=== PATIENT | female | born 1965 | race Caucasian/White ===

== ENCOUNTER 2023-06-10 08:16 | Outpatient (CLI) | payer MEDICARE, SELFPAY ==
--- NOTE | 2023-06-10 08:15 | CRLHL7_ITS ---
For Patients: As a result of the Century Cures Act, medical imaging exams and procedure reports are released immediately into your electronic medical record. You may view this report before your referring provider. If you have questions, please contact your health care provider. BILATERAL SCREENING MAMMOGRAM WITH COMPUTER-AIDED DETECTION AND TOMOSYNTHESIS TECHNIQUE: CC and MLO views were obtained. These mammographic images have been obtained using full-field digital technique. These mammographic images were interpreted with the benefit of computer-aided detection. Breast Tomosynthesis was used in this interpretation. COMPARISON FILM: 03/13/22, 01/22/21, diagnostic , 11/02/19. FINDINGS: There are scattered areas of fibroglandular density IMPRESSION: There is no radiographic evidence for malignancy. ASSESSMENT: BI-RADS Category 1: Negative RECOMMENDATION: Routine screening mammogram in 1 year. A lay language report of this examination will be provided to the patient. Michael Lombardi M.D. Diagnostic Radiologist [email or web address] DM/Dictated by: Michael Lombardi MD @ 06/10/2023 10:49:00 AM (Electronically Signed)
--- OUTSIDE RECORDS SUMMARY | 2023-06-10 08:21 | XMS_ITS | Continuity of Care Document ---
Author Name Unknown Organization [facility] Address [address] [place] [address] Phone Care Team Providers Care Cafeteria Team Leader Name Role Phone Caedn Shin MD Unavailable Unavailab le Medications Medication Instructions Dosage Effective Dates (start - stop) Status Comments AMLODIPINE BESYLATE (unknown strength) Not Available - Active PROPRANOLOL HCL (unknown strength) Not Available - Active HYDROCHLOROTHIAZIDE (unknown strength) Not Available - Active CITALOPRAM HBR (unknown strength) Not Available - Active LORAZEPAM (unknown strength) Not Available - Active PRILOSEC (unknown strength) Not Available - Active ESTROVEN MAXIMUM STRENGTH (unknown strength) Not Available - Active TYLENOL (unknown strength) Not Available - Active VITAMIN D3 (unknown strength) Not Available - Active Procedures Procedure Date Office/Outpatient Visit,[facility] X-Ray Exam Lwr Spine, Min 4 Views Advance Directives Directive Yes / No Effective Date File Name No Information Encounters Encounter Description Practice Location Reason(s) For Visit Diagnoses Date Provider Providers Copied on Encounter [facility], [address], [place], [id number] , [place] tel: [phone] [facility] No Information 6 Kip lucero. [facility], [address], [address], [place], [id number] , [place]. tel: [phone] Office/Outpa tient Visit,[facility], [facility], [address], [place], [id number] , [place] tel: [phone] [facility] Specialty [place] LumbagoObesityLu mbar spondylosisBulgi ng lumbar disc 4 Shin Abhinav lucero. [facility], [address] [place] [address], [address], [place], [place], [id number] , [place]. tel:[phone] Referring Provider: Alexsander Weber, [facility] [address] [place], [address]. tel:[phone] Family History Family Member Type Diagnosis Age At Onset No Information Payers Payer name Insurance type Covered green party ID Authoriza tion(s) Medicare MB [id number] Social History Type Description Quantity Date Captured Comments Sex Female Smoking Status No Information Chief Complaint And Reason For Visit No Information Reason For Referral Reason For Referral No Information Plan Of Treatment Date Type Action Status Referral Ordered: Referrals: AP Lateral Lumbar (related to Obesity) ordered Future Order: Radiology Order AP Lateral Lumbar (APLatLumb), Ordered on: Ordered Future Order: Radiology Order F/ E Lumbar (F/ELumb), Ordered on: Ordered History Of Present Illness Encounter Date Complaint History Of Prese nt Illness No Information Functional Status Date Functional Assessmen t No Information Instructions Date Instruction Additional Infor mation Weight Management Related to Obe sity, unspecified Assessments Type Assessment Date No Information Patient Care Teams Name Effective Dates (start - stop) Status Members No Information
== END 2023-06-10 08:17 | disposition home or self-care (01) ==
LOC: MAMMO 08:19
PROVIDERS: PCP Internal Medicine; Visit Provider Internal Medicine
DX: Z12.31 Encounter for screening mammogram for malignant neoplasm of breast (principal)
CPT/HCPCS: 77063; 77067

== ENCOUNTER 2024-01-19 13:18 | Outpatient (CLI) | payer MEDICARE, SELFPAY ==
--- OUTSIDE RECORDS SUMMARY | 2024-01-21 07:13 | XMS_ITS | Continuity of Care Document ---
Author Name Unknown Organization [facility] Address [address] [place] [address] Phone Care Team Providers Care Field Foreman Name Role Phone Caden Shin MD Unavailable Unavailab le Medications Medication Instructions Dosage Effective Dates (start - stop) Status Comments VITAMIN D3 (unknown strength) Not Available - Active TYLENOL (unknown strength) Not Available - Active ESTROVEN MAXIMUM STRENGTH (unknown strength) Not Available - Active PRILOSEC (unknown strength) Not Available - Active LORAZEPAM (unknown strength) Not Available - Active CITALOPRAM HBR (unknown strength) Not Available - Active HYDROCHLOROTHIAZIDE (unknown strength) Not Available - Active PROPRANOLOL HCL (unknown strength) Not Available - Active AMLODIPINE BESYLATE (unknown strength) Not Available - Active Procedures Procedure Date Office/Outpatient Visit,[facility] 2013 X-Ray Exam Lwr Spine, Min 4 Views Advance Directives Directive Yes / No Effective Date File Name No Information Encounters Encounter Description Practice Location Reason(s) For Visit Diagnoses Date Provider Providers Copied on Encounter [facility], [address], [place], [id number] , [place] tel: [phone] [facility] No Information 6 Kip lucero. [facility], [address], [address], [place], [id number] , [place]. tel: [phone] Office/Outpa tient Visit,[facility], [facility], [address], [place], [id number] , [place] tel: [phone] [facility] Specialty [place] LumbagoObesityLu mbar spondylosisBulgi ng lumbar disc 4 Shin Abhinav lucero. [facility], [address] [place] [address], [address], [place], [place], [id number] , [place]. tel:[phone] Referring Provider: Alexsander Weber, [facility] [address] [place], [address]. tel:[phone] Family History Family Member Type Diagnosis Age At Onset No Information Payers Payer name Insurance type Covered libertarian ID Authoriza tion(s) Medicare MB [id number] Social History Type Description Quantity Date Captured [...]
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
== END 2024-01-19 13:19 | disposition home or self-care (01) ==
LOC: NFLDREF 01-21 07:11
PROVIDERS: PCP Internal Medicine; Visit Provider Internal Medicine
DX: I10 Essential (primary) hypertension (principal); E78.5 Hyperlipidemia, unspecified; K21.9 Gastro-esophageal reflux disease without esophagitis; F41.1 Generalized anxiety disorder; G25.81 Restless legs syndrome; Z72.0 Tobacco use
CPT/HCPCS: 80053; 80061

== ENCOUNTER 2025-02-10 11:04 | Outpatient (CLI) | payer MEDICARE, SELFPAY | END 2025-02-10 11:05 | disposition home or self-care (01) | LOC: NFLDREF 02-22 06:48 | PROVIDERS: PCP Internal Medicine; Referring Provider Internal Medicine; Visit Provider Internal Medicine | DX: E78.5 Hyperlipidemia, unspecified (principal); I10 Essential (primary) hypertension | CPT/HCPCS: 80053; 80061 ==